=== PATIENT | female | born 1945 | race Caucasian/White ===

== ENCOUNTER → 2016-11-02 | Outpatient (CLI) | payer OTHER ==
--- NOTE | 2016-11-02 17:27 | US ---
Retroperitoneal Sonogram, Complete History: Renal cyst, and 28.1 Comparison: 11/21/2012 right upper quadrant sonogram Findings: There is no renal obstruction. The left kidney measures 10.7 cm in length and is associated with a large lateral mid polar cyst measuring 4.7 x 3.9 x 4.5 cm. Within the upper cyst is a relativ ari thick septated area, measuring 2.5 mm in maximal thickness. The right kidney is stable since 2012 and normal measuring 10.9 cm in length. There is no obvious internal cystic nodularity or Doppler bl ood flow. There is no perinephric fluid or soft tissue thickening. The urinary bladder looks normal i n its full state, where it contained approximately 128 mL. The patient could not void.. 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 Recommend co nsidering CT Urogram (with IV contrast) in order to appropriately classify this complex cyst.
== END ==
LOC: FIMAGING 14:05
PROVIDERS: ATTEND Internal Medicine
DX: N28.1 Cyst of kidney, acquired (principal)

== ENCOUNTER → 2016-11-25 | Outpatient (CLI) | payer OTHER ==
[~2016-11-25] MED LIST: IOPAMIDOL (ISOVUE-300) 100 ML BTL IV ONE
[2016-11-25 14:28] LABS: CREATININE 0.8 mg/dL (0.6-1.0); GLOMERULAR FILTRATION RATE > 60
== END ==
LOC: FIMAGING 13:42
PROVIDERS: ATTEND Internal Medicine
DX: N28.1 Cyst of kidney, acquired (principal); K57.30 Diverticulosis of large intestine without perforation or abscess without bleeding; K59.00 Constipation, unspecified; I70.0 Atherosclerosis of aorta; M51.36 Other intervertebral disc degeneration, lumbar region
CPT/HCPCS: 74178; Q9967

== ENCOUNTER → 2016-12-02 | Outpatient (CLI) | payer OTHER | LOC: FIMAGING 14:50 | PROVIDERS: ATTEND Internal Medicine | DX: Z13.820 Encounter for screening for osteoporosis (principal); M85.80 Other specified disorders of bone density and structure, unspecified site ==

== ENCOUNTER → 2017-05-13 | Outpatient (CLI) | payer OTHER | LOC: FIMAGING 10:05 | PROVIDERS: ATTEND Internal Medicine | DX: Z13.21 Encounter for screening for nutritional disorder (principal) | CPT/HCPCS: G0202 ==

== ENCOUNTER → 2018-07-04 | Outpatient (CLI) | payer OTHER ==
[~2018-07-04] MED LIST changes: +GADOBUTROL 10 ML VIAL IVP ONE; -IOPAMIDOL (ISOVUE-300) 100 ML BTL IV ONE
== END ==
LOC: FIMAGING 12:53
PROVIDERS: ATTEND Psychiatry & Neurology Neurology
DX: G35 Multiple sclerosis (principal)
CPT/HCPCS: 70553; A9585

== ENCOUNTER → 2019-02-26 | Outpatient (CLI) | payer OTHER | LOC: FIMAGING 11:46 ==